=== PATIENT | male | born 1970 | race Caucasian/White ===

== ENCOUNTER 2020-07-15 12:25 | Outpatient (CLI) | payer BC ==
--- NOTE | 2020-07-15 12:50 | RAD ---
XR Chest Pa Lat STANDARD HISTORY: Chest pain COMPARISON: None FINDINGS: The heart size is normal. The lungs are well expanded without focal areas of consolidation, pneumothorax or pleural effusions. The bony thorax is unremarkable. IMPRESSION: No radiographic evidence of acute cardiopulmonary process.
== END 2020-07-15 12:26 | disposition home or self-care (01) ==
LOC: SCSRAD 12:25
PROVIDERS: ATTEND Family Medicine
DX: R07.9 Chest pain, unspecified (principal)
CPT/HCPCS: 36415; 71046; 80053; 80061; 81001; 85025